=== PATIENT | female | born 1965 | race Caucasian/White ===

== ENCOUNTER 2019-11-21 18:59 | Emergency (ER) | payer OTHER ==
[~2019-11-21] VITALS: Ht 162.6 cm; Wt 52.2 kg
[2019-11-21] MEDS ORDERED: NEURONTIN 300M300 M2 PO (19:11)
[2019-11-21] MEDS ORDERED: LORCET 5-325 M1 EACH PO ×2 (19:11→21:44)
[2019-11-21] MEDS ORDERED: KEFLEX500 M1 PO (21:44)
[2019-11-21 22:02] VITALS: BP 163/97
== END 2019-11-21 22:03 | disposition home or self-care (01) ==
LOC: M.ERS 18:59
DX: S66.222A Laceration of extensor muscle, fascia and tendon of left thumb at wrist and hand level, initial encounter (principal); S61.402A Unspecified open wound of left hand, initial encounter; I10 Essential (primary) hypertension; W31.89XA Contact with other specified machinery, initial encounter; Y93.89 Activity, other specified; Y92.89 Other specified places as the place of occurrence of the external cause; Y99.8 Other external cause status

== ENCOUNTER 2019-12-25 15:09 | Emergency (ER) | payer OTHER ==
[~2019-12-25] VITALS: Ht 162.6 cm; Wt 52.2 kg
[~2019-12-25 15:09] MED LIST: KEFLEX500 M1 PO; LORCET 5-325 M1 EACH PO; NEURONTIN 300M300 M2 PO
[2019-12-25 16:21] VITALS: BP 121/98
== END 2019-12-25 16:22 | disposition home or self-care (01) ==
LOC: M.ERS 15:09
DX: S60.552A Superficial foreign body of left hand, initial encounter (principal); I10 Essential (primary) hypertension; M79.7 Fibromyalgia; M19.90 Unspecified osteoarthritis, unspecified site; F17.210 Nicotine dependence, cigarettes, uncomplicated; W26.8XXA Contact with other sharp object(s), not elsewhere classified, initial encounter; Y93.89 Activity, other specified; Y92.89 Other specified places as the place of occurrence of the external cause; Y99.8 Other external cause status